=== PATIENT | female | born 1980 | race Caucasian/White ===

== ENCOUNTER 2018-08-14 19:34 | Emergency (ER) | payer OTHER ==
[2018-08-14] MEDS ORDERED: KETOROLAC 30 MG/ML 1 ML VIAL IVP STA (20:00)
[2018-08-14] MEDS ORDERED: SODIUM CHLORIDE 0.9% 1,000 ML IV STA (20:00)
[2018-08-14] MEDS ORDERED: ONDANSETRON 4 MG/2 ML VIAL IVP STA (20:00)
--- NOTE | 2018-08-14 20:19 | ED ---
General Adult HPI - General Source: patient, RN notes reviewed Mode of arrival: ambulatory Limitations: no limitations <Hay Khan P - Last Filed: 08/14/18 22:11> <Nadiya Kellogg P - Last Filed: 08/16/18 02:06> - General Chief complaint: Abdominal Pain Stated complaint: Blood in stool,lower abd pain Time Seen by Provider: 08/14/18 19:46 - History of Present Illness Initial comments: 38-year-old female presents to the emergency department for a chief complaint of hematochezia. Patient states this started yesterday. Patient states the blood is bright red. She states there was "a lot in the toilet." Patient also complains of lower abdominal pain. Patient states has been ongoing for months but worsened in the past few days. Patient states it is generalized to her lower abdomen and is a sharp cramping pain. Patient has had a bowel movement earlier today. She states that this was harder than normal consistency. Patient states she did have pain while producing a bowel movement. She states she also has hemorrhoids which she is aware of. She denies any rectal pain at this time. Patient has no other complaints at this time including shortness of breath, chest pain, nausea or vomiting, headache, or visual changes. (Hay Khan) - Related Data Home Medications Medication Instructions Recorded Confirmed Acetaminophen [Tylenol Arthritis] 650 mg PO Q4H PRN 08/14/18 08/14/18 Albuterol Nebulized [Ventolin 2.5 mg INHALATION RT-Q4H PRN 08/14/18 08/14/18 Nebulized] Docusate [Colace] 100 mg PO BID PRN 08/14/18 08/14/18 Ibuprofen [Motrin] 600 mg PO Q6HR PRN 08/14/18 08/14/18 buPROPion HCL [Wellbutrin XL] 150 mg PO BID 08/14/18 08/14/18 traZODone HCL [Desyrel] 150 mg PO HS 08/14/18 08/14/18 Allergies Allergy/AdvReac Type Severity Reaction Status Date / Time amoxicillin Allergy Rash/Hives Verified 08/14/18 19:52 clavulanic acid Allergy Unknown Verified 08/14/18 19:52 [From Augmentin] Penicillins Allergy Unknown Verified 08/14/18 19:52 prednisone Allergy Unknown Verified 08/14/18 19:52 Review of Systems ROS Other: All systems not noted in ROS Statement are negative. <Hay Khan P - Last Filed: 08/14/18 22:11> ROS Other: All systems not noted in ROS Statement are negative. <ValdezNadiya P - Last Filed: 08/16/18 02:06> ROS Statement: Those systems with pertinent positive or pertinent negative responses have been documented in the HPI. Past Medical History Past Medical History: No Reported History History of Any Multi-Drug Resistant Organisms: MRSA Date of last positivie culture/infection: 2014 MDRO Source:: Back of head Past Surgical History: No Surgical Hx Reported Past Psychological History: Anxiety, Bipolar, Depression Smoking Status: Current every day smoker Past Alcohol Use History: Abuse, Daily Past Drug Use History: Prescription Drug Abuse <Hya Khan P - Last Filed: 08/14/18 22:11> General Exam Limitations: no limitations General appearance: alert, in no apparent distress Head exam: Present: atraumatic, normocephalic, normal inspection Eye exam: Present: normal appearance, PERRL, EOMI. Absent: scleral icterus, conjunctival injection, periorbital swelling ENT exam: Present: normal exam, mucous membranes moist Neck exam: Present: normal inspection, full ROM. Absent: tenderness, meningismus, lymphadenopathy Respiratory exam: Present: normal lung sounds bilaterally. Absent: respiratory distress, wheezes, rales, rhonchi, stridor Cardiovascular Exam: Present: regular rate, normal rhythm, normal heart sounds. Absent: systolic murmur, diastolic murmur, rubs, gallop, clicks GI/Abdominal exam: Present: soft, tenderness (tender in the lower abdomen), normal bowel sounds. Absent: distended, guarding, rebound, rigid Neurological exam: Present: alert, oriented X3, CN II-XII intact Psychiatric exam: Present: normal affect, normal mood <Hay Khan P - Last Filed: 08/14/18 22:11> Vital Signs 08/14/18 08/14/18 08/14/18 19:37 21:40 22:36 Temperature 98.3 F 96.9 F L Pulse Rate 75 70 67 Respiratory 16 18 18 Rate Blood Pressure 106/71 112/60 122/71 O2 Sat by Pulse 97 99 98 Oximetry Medical Decision Making - Lab Data Result diagrams: 08/14/18 20:05 08/14/18 20:05 <Hay Khan - Last Filed: 08/14/18 22:11> - Lab Data Result diagrams: 08/14/18 20:05 08/14/18 20:05 <Nadiya Kellogg P - Last Filed: 08/16/18 02:06> - Medical Decision Making 38-year-old female since to the emergency department for a chief complaint of hematochezia. Patient states this started yesterday. She states she has having some bright red blood per rectum. She also complains of lower abdominal pain but this has been ongoing for months. Patient currently staying at [facility] for opiate use. She did have a bowel movement earlier today. On exam no significant tenderness noted. Tenderness in the lower abdomen is mild, no guarding present. CBC and CMP unremarkable. Urine does not show any evidence of infection. Stool occult blood is positive. Computed tomography scan is negative. Image and report were reviewed. Vitals with any syncopal limits. Patient reevaluated and stating she is feeling much better. Pain is resolved after Toradol. Patient will follow up with GI. She will return if she has any worsening symptoms. Discussed with Dr. Kellogg (Hay Khan) I was available for consultation in the emergency department. The history and physical exam were done by the midlevel provider. I was consulted for this patient's care. I reviewed the case with the midlevel provider and based on their presentation of the patient, I agree with the assessment, medical decision making and plan of care as documented. (Nadiya Kellogg) - Lab Data Lab Results 08/14/18 08/14/18 08/14/18 Range/Units 20:05 20:05 20:05 WBC 6.1 (3.8-10.6) k/uL RBC 4.62 (3.80-5.40) m/uL Hgb 13.9 (11.4-16.0) gm/dL Hct 42.5 (34.0-46.0) % MCV 92.0 (80.0-100.0) fL MCH 30.1 (25.0-35.0) pg MCHC 32.7 (31.0-37.0) g/dL RDW 13.8 (11.5-15.5) % Plt Count 161 (150-450) k/uL Neutrophils % 57 % Lymphocytes % 31 % Monocytes % 6 % Eosinophils % 4 % Basophils % 1 % Neutrophils # 3.5 (1.3-7.7) k/uL Lymphocytes # 1.9 (1.0-4.8) k/uL Monocytes # 0.4 (0-1.0) k/uL Eosinophils # 0.2 (0-0.7) k/uL Basophils # 0.0 (0-0.2) k/uL Sodium 139 (137-145) mmol/L Potassium 4.2 (3.5-5.1) mmol/L Chloride 102 (98-107) mmol/L Carbon Dioxide 30 (22-30) mmol/L Anion Gap 7 mmol/L BUN 18 H (7-17) mg/dL Creatinine 0.68 (0.52-1.04) mg/dL Est GFR (CKD-EPI)AfAm >90 (>60 ml/min/1.73 sqM) Est GFR (CKD-EPI)NonAf >90 (>60 ml/min/1.73 sqM) Glucose 78 (74-99) mg/dL Calcium 9.3 (8.4-10.2) mg/dL Total Bilirubin 0.5 (0.2-1.3) mg/dL AST 45 H (14-36) U/L ALT 54 H (9-52) U/L Alkaline Phosphatase 58 (38-126) U/L Total Protein 7.3 (6.3-8.2) g/dL Albumin 4.0 (3.5-5.0) g/dL Amylase 33 (30-110) U/L Lipase 42 (23-300) U/L Urine Color Urine Appearance (Clear) Urine pH (5.0-8.0) Ur Specific [place] (1.001-1.035) Urine Protein (Negative) Urine Glucose (UA) (Negative) Urine Ketones (Negative) Urine Blood (Negative) Urine Nitrite (Negative) Urine Bilirubin (Negative) Urine Urobilinogen (<2.0) mg/dL Ur Leukocyte Esterase (Negative) Urine HCG, Qual Not Detected (Not Detectd) Stool Occult Blood (Negative) 08/14/18 08/14/18 Range/Units 20:05 20:05 WBC (3.8-10.6) k/uL RBC (3.80-5.40) m/uL Hgb (11.4-16.0) gm/dL Hct (34.0-46.0) % MCV (80.0-100.0) fL MCH (25.0-35.0) pg MCHC (31.0-37.0) g/dL RDW (11.5-15.5) % Plt Count (150-450) k/uL Neutrophils % % Lymphocytes % % Monocytes % % Eosinophils % % Basophils % % Neutrophils # (1.3-7.7) k/uL Lymphocytes # (1.0-4.8) k/uL Monocytes # (0-1.0) k/uL Eosinophils # (0-0.7) k/uL Basophils # (0-0.2) k/uL Sodium (137-145) mmol/L Potassium (3.5-5.1) mmol/L Chloride (98-107) mmol/L Carbon Dioxide (22-30) mmol/L Anion Gap mmol/L BUN (7-17) mg/dL Creatinine (0.52-1.04) mg/dL Est GFR (CKD-EPI)AfAm (>60 ml/min/1.73 sqM) Est GFR (CKD-EPI)NonAf (>60 ml/min/1.73 sqM) Glucose (74-99) mg/dL Calcium (8.4-10.2) mg/dL Total Bilirubin (0.2-1.3) mg/dL AST (14-36) U/L ALT (9-52) U/L Alkaline Phosphatase (38-126) U/L Total Protein (6.3-8.2) g/dL Albumin (3.5-5.0) g/dL Amylase (30-110) U/L Lipase (23-300) U/L Urine Color Light Yellow Urine Appearance Clear (Clear) Urine pH 6.5 (5.0-8.0) Ur Specific [place] 1.010 (1.001-1.035) Urine Protein Negative (Negative) Urine Glucose (UA) Negative (Negative) Urine Ketones Negative (Negative) Urine Blood Negative (Negative) Urine Nitrite Negative (Negative) Urine Bilirubin Negative (Negative) Urine Urobilinogen <2.0 (<2.0) mg/dL Ur Leukocyte Esterase Negative (Negative) Urine HCG, Qual (Not Detectd) Stool Occult Blood Positive H (Negative) Disposition Is patient prescribed a controlled substance at d/c from ED?: No Time of Disposition: 22:07 <Hay Khan P - Last Filed: 08/14/18 22:11> <Nadiya Kellogg P - Last Filed: 08/16/18 02:06> Clinical Impression: Rectal bleeding Disposition: HOME SELF-CARE Condition: Good Instructions: Rectal Bleeding (ED), Abdominal Pain (ED) Additional Instructions: Please take MiraLAX as needed for constipation. Please follow-up with primary care in 1-2 days. Return if you have any worsening symptoms. Referrals: Gloria Burnett MD [STAFF PHYSICIAN] - 1-2 days Joel Mccormack MD [STAFF PHYSICIAN] - 1-2 days
[2018-08-14 20:22] LABS: Appearance,Urine Clear (Clear); Basophils % (A) 1 %; Bilirubin,Urine Negative (Negative); Blood,Urine Negative (Negative); Color,Urine Light Yellow; Eosinophils # (A) 0.2 k/uL (0-0.7); Eosinophils % (A) 4 %; Glucose,Urine (UA) Negative (Negative); HCT 42.5 % (34.0-46.0); HGB 13.9 gm/dL (11.4-16.0); Ketones,Urine Negative (Negative); Leukocyte Esterase,Urine Negative (Negative); Lymphocytes # (A) 1.9 k/uL (1.0-4.8); Lymphocytes % (A) 31 %; MCH 30.1 pg (25.0-35.0); MCHC 32.7 g/dL (31.0-37.0); Mean Platelet Volume 7.8; Monocytes # (A) 0.4 k/uL (0-1.0); Monocytes % (A) 6 %; Neutrophils # (A) 3.5 k/uL (1.3-7.7); Neutrophils % (A) 57 %; Nitrite,Urine Negative (Negative); PH, Urine 6.5 (5.0-8.0); Platelet Count 161 k/uL (150-450); Protein,Urine Negative (Negative); RBC 4.62 m/uL (3.80-5.40); RDW 13.8 % (11.5-15.5); Urobilinogen,Urine <2.0 mg/dL (<2.0); WBC 6.1 k/uL (3.8-10.6)
[2018-08-14 20:37] LABS: ALT 54 U/L (9-52); AST 45 U/L (14-36); Alkaline Phosphatase 58 U/L (38-126); Amylase 33 U/L (30-110); Anion Gap 7 mmol/L; Blood Urea Nitrogen 18 mg/dL (7-17); Calcium 9.3 mg/dL (8.4-10.2); Carbon Dioxide 30 mmol/L (22-30); Chloride 102 mmol/L (98-107); Glucose 78 mg/dL (74-99); Lipase 42 U/L (23-300); Potassium 4.2 mmol/L (3.5-5.1); Sodium 139 mmol/L (137-145); Total Bilirubin 0.5 mg/dL (0.2-1.3); Total Protein 7.3 g/dL (6.3-8.2)
--- NOTE | 2018-08-14 21:05 | CT ---
EXAMINATION TYPE: CT abdomen pelvis w con DATE OF EXAM: 08/14/2018 COMPARISON: HISTORY: Lower abdominal pain and blood in stool. CT DLP: 934 mGycm Automated exposure control for dose reduction was used. TECHNIQUE: Helical acquisition of images was performed from the lung bases through the pelvis. CONTRAST: Performed without Oral Contrast and with IV Contrast, patient injected with 100ml mL of Isovue 300. FINDINGS: Lung bases are clear. There is no pleural effusion. Heart size is normal. Liver spleen pancreas gallbladder appear normal. Bile ducts are not dilated. Stomach appears normal. There is no adrenal mass. The kidneys show satisfactory contrast opacification. There is no hydroneph rosis. Ureters are not dilated. There is no retroperitoneal adenopathy. Bladder distends smoothly. Th ere is no inguinal hernia. Uterus is anteverted. There is no free fluid in the pelvis. There is no me senteric edema. There is intact lumbar spine. Bony pelvis appears intact. There is no evidence of free air. There is no intestinal wall thickening. There is no sign of a bowel obstruction. IMPRESSION: NORMAL CT SCAN OF THE ABDOMEN AND PELVIS. I DO NOT SEE A CAUSE FOR ABDOMINAL PAIN.
[2018-08-14 21:41] VITALS: RESP 18
[2018-08-14 22:38] VITALS: BP 122/71; PULSE 67; TEMP 96.9
== END 2018-08-14 22:37 | disposition home or self-care (01) ==
LOC: EC 19:34
DX: K92.1 Melena (principal); R10.30 Lower abdominal pain, unspecified; F41.9 Anxiety disorder, unspecified; F32.9 Major depressive disorder, single episode, unspecified; F17.200 Nicotine dependence, unspecified, uncomplicated; Z86.14 Personal history of Methicillin resistant Staphylococcus aureus infection; Z79.899 Other long term (current) drug therapy; Z88.0 Allergy status to penicillin; Z88.8 Allergy status to other drugs, medicaments and biological substances
CPT/HCPCS: 36415; 80053; 82150; 83690; 85025; 82272; 81003; 81025; 74177; 99284; 96374; 96375; 96361 ×2; J2405; J1885; Q9967